=== PATIENT | female | born 1990 | race Caucasian/White ===

== ENCOUNTER 2022-09-21 17:06 | Emergency (ER) | payer MEDICAID, SELFPAY ==
[2022-09-21 17:44] VITALS: BP 101/62; PULSE 72; RESP 16; TEMP 36.6; O2SAT 96; BMI 32.8
--- NOTE | 2022-09-21 18:06 | CT_ITS ---
PROCEDURE INFORMATION: Exam: CT Head Without Contrast Exam date and time: 09/21/2022 7:08 PM Age: 31 years old Clinical indication: Pain; Headache; Migraine; Additional info: Headache, atypical TECHNIQUE: Imaging protocol: Computed tomography of the head without contrast. Radiation optimization: All CT scans at this facility use at least one of these dose optimization techniques: automated exposure control; mA and/or kV adjustment per patient size (includes targeted exams where dose is matched to clinical indication); or iterative reconstruction. COMPARISON: No relevant prior studies available. FINDINGS: Brain: Normal. No hemorrhage. Unremarkable white matter. No mass effect. Cerebral ventricles: No ventriculomegaly. Paranasal sinuses: Visualized sinuses are unremarkable. No fluid levels. Mastoid air cells: Visualized mastoid air cells are well aerated. Bones/joints: Unremarkable. No acute fracture. Soft tissues: Unremarkable. IMPRESSION: No acute intracranial abnormality.
--- NOTE | 2022-09-21 18:07 | [facility].EDGENADL ---
Discharge Plan Disposition Patient Disposition: Home, Self-Care Condition: Good Chief Complaint: Headache Prescriptions Prescriptions: No Action rizatriptan 10 mg Tablet 10 mg PO Q2H PRN (Reason: Headache) Rx Instructions: do not exceed 3 doses per 24 hrs Referrals Follow up/Referrals: Tiffany Mosher MD [Primary Care Provider] - See instructions Clinical Impressions Clinical Impression: Migraine Instructions Patient Instructions: DI for Headache, DI for Migraine Discharge ED Provider: Lazaro Hernandez General Adult HPI General Chief complaint: Headache Stated complaint: DAVISON Time Seen by Provider: 09/21/22 18:02 Mode of Arrival: Ambulatory Source of Information: Patient Limitations: No Limitations Description of Symptoms (Recalled from ER Triage Doc. by RN): pt c/o headache x2 days. Pt reports has been having headaches frequently over the past several months. Pt reports is supposed to be getting refferred to a neurologist. Pt reports L eye pain and blurry vision in L eye. Pt reports eye pain and blurry vision on L side are symptoms that she has had with all her headaches over the past several months. History of Present Illness HPI narrative: 31-year-old female, history of chronic headaches over the past few months, has been seen by PCP prescribed a triptan however they have been persistent, she presents today with worsening left-sided headache over the last 2 days. She states she previously been referred to a neurologist but appointment is not for about another month. She does report pain in the left eye and blurry vision, no visual loss, no numbness, tingling, facial asymmetry, difficulty speaking or loss of strength. Denies any head trauma. No other acute treatments today. No known family history of any aneurysm. Denies fever, neck pain, temporal artery tenderness. Related Data Home Medications Medication Instructions Recorded Confirmed rizatriptan 10 mg tablet 10 mg PO Q2H PRN Headache 09/21/22 09/21/22 Allergies Allergy/AdvReac Type Severity Reaction Status Date / Time No Known Allergies Allergy Verified 09/21/22 17:48 [facility] Disclaimer: The information contained in this section may have been updated after the patient was seen, as this information can be updated by other users. Social History Smoking Status: Never smoker alcohol intake: never current occupational status: other Travel in the last 8 weeks: None ROS Obtained: Yes Systems reviewed as appropriate & no additional complaints except as documented Constitutional Constitutional: Reports system reviewed and no additional complaints, except as documented Eyes Eyes: Reports system reviewed and no additional complaints, except as documented ENT Ears, Nose, Mouth, and Throat: Reports system reviewed and no additional complaints, except as documented Cardiovascular Cardiovascular: Reports system reviewed and no additional complaints, except as documented Respiratory Respiratory: Reports system reviewed and no additional complaints, except as documented Gastrointestinal Gastrointestingal: Reports system reviewed and no additional complaints, except as documented Genitourinary Female Genitourinary: Reports system reviewed and no additional complaints, except as documented Musculoskeletal Musculoskeletal: Reports system reviewed and no additional complaints, except as documented Integumentary/Breasts Skin/Breast: Reports system reviewed and no additional complaints, except as documented Neurologic Neurologic: Reports system reviewed and no additional complaints, except as documented Endocrine Endocrine: Reports system reviewed and no additional complaints, except as documented Hematologic/Lymphatic Henatologic/Lymphatic: Reports system reviewed and no additional complaints, except as documented Allergic/Immunologic Allergic/Immunologic: Reports system reviewed a
[2022-09-21 18:41] LABS: Basophils # 0.1 K/mm3 (0-0.2); Basophils % 0.5 % (0.1-2.0); Eosinophils # 0.2 K/mm3 (0.0-0.4); Eosinophils % 2.3 % (0.1-12.0); Hematocrit 41.2 % (37.0-47.0); Hemoglobin 13.8 g/dL (12.2-16.2); Lymphocytes # 2.8 K/mm3 (0.7-4.5); Lymphocytes % 28.5 % (10-50); Mean Corpuscular HGB Conc 33.4 g/dL (31.8-35.4); Mean Corpuscular Hemoglobin 32.2 pg (27.0-31.2); Mean Corpuscular Volume 96.3 fl (81-99); Mean Platelet Volume 7.9 fl (7.4-10.4); Monocytes # 0.4 K/mm3 (0.1-1.0); Monocytes % 3.7 % (1.7-9.3); Neutrophils # 6.4 K/mm3 (1.8-7.8); Platelet Count 276 K/mm3 (142-424); Red Blood Count 4.28 M/mm3 (4.20-5.40); Red Cell Distribution Width 12.3 % (11.5-17.5); White Blood Count 9.8 K/mm3 (4.8-10.8)
[2022-09-21 18:58] LABS: Alanine Aminotransferase 23 U/L (12-78); Albumin Level 4.4 g/dl (3.5-5.0); Albumin/Globulin Ratio 1.3 (1.1-1.8); Alkaline Phosphatase 117 U/L (38-126); Anion Gap 11.4 mEq/L (5-15); Aspartate Amino Transferase 27 U/L (14-36); Bilirubin,Total 0.4 mg/dl (0.2-1.3); Blood Urea Nitrogen 11 mg/dl (7-17); Calcium 9.4 mg/dl (8.4-10.2); Carbon Dioxide 30 mmol/L (22.0-30.0); Chloride 102 mmol/L (98-107); Creatinine Clearance Estimated 107 mL/min (50-200); Estimated Glomerular Filt Rate 72 ml/min (>60); GFR (African American) 87 ML/MIN (>60); Globulin 3.3 g/dL (1.3-3.2); Glucose 102 mg/dl (74-100); Potassium 3.4 mmoL/L (3.5-5.1); Sodium 140 mmol/L (136-145); Total Protein,Serum 7.7 g/dl (6.3-8.2)
[2022-09-21 19:02] LABS: Acetaminophen < 10 ug/ml (10-30); HCG Qualitative, Serum Negative (Negative)
[2022-09-21 19:03] LABS: C-Reactive Protein 35.2 mg/L (0-4)
[2022-09-21 19:06] LABS: Erythrocyte Sedimentation Rate 67 mm/hr (0-20)
[2022-09-21 20:00] VITALS: BP 110/74; PULSE 70; RESP 16; TEMP 36.6; O2SAT 97
== END 2022-09-21 20:01 | disposition home or self-care (01) ==
PROVIDERS: Emergency Provider Emergency Medicine; PCP Internal Medicine
DX: G43.909 Migraine, unspecified, not intractable, without status migrainosus (principal)
CPT/HCPCS: 70450; 80053; 80329; 84703; 85025; 85651; 86140; 96365; 96375; 99284